=== PATIENT | female | born 1965 | race Caucasian/White ===

== ENCOUNTER 2019-11-14 10:17 | Outpatient (CLI) | payer BC ==
[~2019-11-14] VITALS: Ht 152.4 cm; Wt 99.0 kg
[2019-11-14 10:51] VITALS: BP 153/93
[2019-11-14 11:21] LABS: BASOPHILS % (AUTO) 1 % (0-10); EOSINOPHILS # (AUTO) 0.1 10^3/uL (0.0-0.3); EOSINOPHILS % (AUTO) 1 % (0-10); HEMATOCRIT 47 % (35-52); HEMOGLOBIN 15.7 G/DL (11.5-16.0); LYMPHOCYTES % (AUTO) 37 % (12-44); MEAN CORPUSCULAR HEMOGLOBIN 31 PG (25-34); MEAN CORPUSCULAR HGB CONC 33 G/DL (32-36); MEAN CORPUSCULAR VOLUME 93 FL (80-99); MEAN PLATELET VOLUME 8.8 FL (7.4-10.4); MONOCYTES # (AUTO) 0.5 X 10^3 (0.0-1.0); MONOCYTES % (AUTO) 6 % (0-12); NEUTROPHILS # (AUTO) 4.5 X 10^3 (1.8-7.8); NEUTROPHILS % (AUTO) 56 % (42-75); PLATELET COUNT 307 10^3/uL (130-400); RED CELL DISTRIBUTION WIDTH 13.4 % (10.0-14.5); WHITE BLOOD COUNT 8.2 10^3/uL (4.3-11.0)
[2019-11-14] MEDS ORDERED: ACET-2650 PO (12:00)
[2019-11-14] MEDS ORDERED: LACT1CAP62 PO (12:00)
[2019-11-14] MEDS ORDERED: GLUC1CAP37 PO (12:00)
[2019-11-14] MEDS ORDERED: METF-397 PO (12:00)
== END 2019-11-14 10:50 | disposition home or self-care (01) ==
LOC: PREOP 10:17
PROVIDERS: ATTEND Obstetrics & Gynecology
DX: Z01.818 Encounter for other preprocedural examination (principal); Z01.812 Encounter for preprocedural laboratory examination; D25.9 Leiomyoma of uterus, unspecified; N95.0 Postmenopausal bleeding
CPT/HCPCS: 36415; 85025; 86850; 86900; 86901; 87081

== ENCOUNTER 2019-11-21 06:40 | Day surgery (SDC) | payer BC, OTHER ==
[2019-11-21] VITALS (13 sets, daily range): BP systolic 110–155; BP diastolic 68–101
[~2019-11-21] VITALS: Ht 152.4 cm; Wt 99.0 kg
[~2019-11-21 06:40] MED LIST: ACET-2650 PO; GLUC1CAP37 PO; LACT1CAP62 PO; LACTATED RINGERS 1,000 ML IV ONE; LACTATED RINGERS 1,000 ML IV PRN; METF-397 PO
--- OUTSIDE RECORDS SUMMARY | 2019-11-21 06:44 | XMS REPORT ---
Author Author Angelica Stevens Doctor Organization [facility] Address Unknown Phone Unavailable Care Team Providers Care Wellness Nurse Name Role Phone Migration, Doctor Unavailable Unavailable PROBLEMS Type Condition ICD9-CM Code [id number] Code Onset Dates Condition S tatus SNOMED Code Problem Diverticulitis of colon (without mention of hemorrhage) 56 2.11 Active 148092724 ALLERGIES No Information ENCOUNTERS Encounter Location Date Diagnosis [place] [address] [phone] May, Encounter for immunization Z 23 [place] [address] [phone] 13 Jan, 2016 Examination, physical, emplo shields Z02.89 and Screening for tuberculosis Z11.1 [place] [address] [address] [place] [id number] [place] [phone] May, Encounter for immunization Z 23 [place] [address] [address] Nov, [place] [address] [address] [place] [id number] [place] [phone] Nov, [place] [address] [address] [place] [id number] [place] [phone] Jul, [facility] [address] [place] [id number] [place] [phone] Jul, [place] [address] [address] [place] [id number] [place] [phone] May, [facility] [address] [place] [id number] [place] [phone] May, [facility] [address] [place] [id number] [place] [phone] Mar, [facility] [address] [id number] [address] [place] [phone] Mar, [facility] [address] [id number] [address] [place] [phone] Jul, [facility] [address] [id number] [address] [place] [phone] Jul, [facility] [address] [id number] [address] [place] [phone] Jul, [facility] [address] [id number] [address] [place] [phone] Jul, [facility] [address] [id number] [address] [place] [phone] Jan, [facility] [address] [facility] [id number] [address] [place] [phone] Jul, [facility] [address] [facility] [id number] [address] [place] [phone] May, IMMUNIZATIONS No Known Immunizations SOCIAL HISTORY Never Assessed REASON FOR VISIT [place] [place]AN OF CARE VITAL SIGNS MEDICATIONS Medication Instructions Dosage Frequency Start Date End Date Duration S kya Flagyl 500 mg 1 tablet by Oral route 3 times per day f or 7 days Jan, Active RESULTS No Results PROCEDURES No Known procedures INSTRUCTIONS MEDICATIONS ADMINISTERED No Known Medications MEDICAL (GENERAL) HISTORY Type Description Date Medical History Headache
--- OUTSIDE RECORDS SUMMARY | 2019-11-21 06:44 | XMS REPORT ---
Author Author Angelica THURSTON Organization [employer] Address Unknown Phone Unavailable Care Team Providers Care Specialist Employee Labor Relations Name Role Phone JO-ANN THURSTON CP Unavailable Allergies No Known Allergies Problems Problem Type Condition Code Onset Dates Condition Statu s Assessment Encounter for immunization Z23 A ctive Problem Diverticulitis of colon (without mention of hemorrhage ) 562.11 Active Medications No Known Medications Procedures Procedure Coding System Code Date TDAP (BOOSTRIX) CPT-4 48926 Jun 25, 2015 SINGLE IMMUNIZATION ADMIN CPT-4 62904 May FLUARIX QUAD (3 & UP)-GSK-2014 CPT-[address] 2014 IMMUNIZATION ADMIN, EACH ADD (please include units) CPT-4 16593 Jun 25, 2015 Results No Known Results Immunizations Vaccine Administration Date FLUARIX QUAD (3 & UP)-GSK-2014Jun 25, 2015 TDAP (BOOSTRIX) Jun 25, 2015 Summary Purpose [employer] Submission
--- OUTSIDE RECORDS SUMMARY | 2019-11-21 06:44 | XMS REPORT ---
Author Author Angelica OLSON Organization [facility] Address [address] [place] [address] Care Team Providers Care Machine Crater Name Role Phone LUIS OLSON Unavailable PROBLEMS Type Condition ICD9-CM Code FEC59-WO Code Onset Dates Condition S tatus SNOMED Code Problem Diverticulitis of colon (without mention of hemorrhage) 56 2.11 Active [id number] ALLERGIES No Information ENCOUNTERS Encounter Location Date Diagnosis [facility] [address] [place] [id number] [place] [id number] 13 May, 2016 Encounter for immunization Z 23 [facility] [address] [address] 13 Jan, 2016 Examination, physical, emplo shields Z02.89 and Screening for tuberculosis Z11.1 [facility] [address] [facility] [id number] [address] [place] [phone] May, Encounter for immunization Z 23 [facility] [address] [facility] [id number] [address] [place] [phone] 14 Nov, 2014 [facility] [address] [place] [id number] [place] [phone] Nov, [facility] [address] [facility] [id number] [address] [place] [phone] Jul, [facility] [address] [place] [id number] [place] [phone] Jul, [facility] [address] [place] [id number] [place] [phone] May, [facility] [address] [place] [id number] [place] [phone] May, [place] [address] [id number] [address] [place] [phone] Mar, [facility] [address] [id number] [address] [place] [phone] Mar, [facility] [address] [id number] [address] [place] [phone] Jul, [facility] [address] [id number] [address] [place] [phone] Jul, [facility] [address] [id number] [address] [place] [phone] Jul, [facility] [address] [id number] [address] [place] [phone] Jul, [facility] [address] [facility] [id number] [address] [place] [phone] Jan, [facility] [address] [id number] [address] [place] [phone] Jul, [facility] [address] [id number] [address] [place] [phone] May, IMMUNIZATIONS No Known Immunizations SOCIAL HISTORY Never Assessed REASON FOR VISIT PLAN OF CARE VITAL SIGNS MEDICATIONS Unknown Medications RESULTS No Results PROCEDURES No Known procedures INSTRUCTIONS MEDICATIONS ADMINISTERED No Known Medications MEDICAL (GENERAL) HISTORY Type Description Date Medical History Headache
--- OUTSIDE RECORDS SUMMARY | 2019-11-21 06:44 | XMS REPORT ---
Author Author Angelica CASTANEDA [facility] Address [address] [place] [address] Care Team Providers Care Survey Coordinator Name Role Phone HANH CASTANEDA Unavailable PROBLEMS Type Condition ICD9-CM Code CPB16-CW Code Onset Dates Condition S tatus SNOMED Code Problem Diverticulitis of colon (without mention of hemorrhage) 56 2.11 Active [id number] ALLERGIES No Information ENCOUNTERS Encounter Location Date Diagnosis [facility] [address] [place] [id number] [place] [phone] 13 May, 2016 Encounter for immunization Z 23 [facility] [address] [id number] 13 Jan, 2016 Examination, physical, emplo shields Z02.89 and Screening for tuberculosis Z11.1 [facility] [address] [facility] [id number] [address] [place] [phone] May, Encounter for immunization Z 23 [facility] [address] [place] [id number] [place] [phone] 14 Nov, 2014 [facility] [address] [place] [id number] [place] [phone] Nov, [facility] [address] [facility] [id number] [address] [place] [phone] Jul, [facility] [address] [place] [id number] [place] [phone] Jul, [facility] [address] [place] [id number] [place] [phone] May, [facility] [address] [place] [id number] [place] [phone] May, [place] [address] [id number] [address] [place] [phone] Mar, [facility] [address] [id number] [address] [place] [phone] Mar, [facility] [address] [id number] [address] [place] [phone] Jul, [facility] [address] [id number] [address] [place] [phone] Jul, [facility] [address] [id number] [address] [place] [phone] Jul, [facility] [address] [id number] [address] [place] [phone] Jul, [facility] [address] [id number] [address] [place] [phone] Jan, [facility] [address] [id number] [address] [place] [phone] Jul, [facility] [address] [id number] [address] [place] [phone] May, IMMUNIZATIONS No Known Immunizations SOCIAL HISTORY Never Assessed REASON FOR VISIT PLAN OF CARE VITAL SIGNS MEDICATIONS Unknown Medications RESULTS No Results PROCEDURES Procedure Date Ordered Result Body Site GLUCOSE BLOOD TEST Apr 28, 2014 LIPID PANEL Apr 28, 2014 VENIPUNCT, ROUTINE* Apr 28, 2014 HEMOGLOBIN Apr 28, 2014 INSTRUCTIONS MEDICATIONS ADMINISTERED No Known Medications MEDICAL (GENERAL) HISTORY Type Description Date Medical History Headache
--- OUTSIDE RECORDS SUMMARY | 2019-11-21 06:44 | XMS REPORT ---
Author Author Angelica THURSTON Organization [employer] Address Unknown Phone Unavailable Care Team Providers Care Cushion Spring Assembler Name Role Phone JO-ANN THURSTON CP Unavailable Allergies No Known Allergies Problems Problem Type Condition Code Onset Dates Condition Statu s Assessment Encounter for immunization Z23 A ctive Problem Diverticulitis of colon (without mention of hemorrhage ) 562.11 Active Medications No Known Medications Procedures Procedure Coding System Code Date SINGLE IMMUNIZATION ADMIN CPT-4 06123 May FLUARIX QUAD P-FREE 3 AND UP .50 2015 CPT-4 49770 Jun 12, 2016 Results No Known Results Immunizations Vaccine Administration Date FLUARIX QUAD P-FREE 3 AND UP .50 2015Jun 12, 2016 Summary Purpose [employer] Submission
--- OUTSIDE RECORDS SUMMARY | 2019-11-21 06:44 | XMS REPORT ---
Author Author Angelica Stevens Doctor Organization [facility] Address Unknown Phone Unavailable Care Team Providers Care Baby Formula Worker Name Role Phone Migration, Doctor Unavailable Unavailable PROBLEMS Type Condition ICD9-CM Code HEQ64-QW Code Onset Dates Condition S tatus SNOMED Code Problem Diverticulitis of colon (without mention of hemorrhage) 56 2.11 Active 400354629 ALLERGIES No Information ENCOUNTERS Encounter Location Date Diagnosis [place] [address] [phone] May, Encounter for immunization Z 23 [place] [address] [address] 13 Jan, 2016 Examination, physical, emplo shields Z02.89 and Screening for tuberculosis Z11.1 [place] [address] [place] [id number] [place] [phone] May, Encounter for immunization Z 23 [place] [address] [address] Nov, [place] [address] [place] [id number] [place] [phone] Nov, [place] [address] [place] [id number] [place] [phone] Jul, [facility] [address] [place] [id number] [place] [phone] Jul, [place] [address] [place] [id number] [place] [phone] May, [facility] [address] [place] [id number] [place] [phone] May, [facility] [address] [place] [id number] [place] [phone] Mar, [facility] [address] [place] [id number] [address] [place] [phone] Mar, [facility] [address] [place] [id number] [address] [place] [phone] Jul, [facility] [address] [place] [id number] [address] [place] [phone] Jul, [facility] [address] [place] [id number] [address] [place] [phone] Jul, [facility] [address] [place] [id number] [address] [place] [phone] Jul, [facility] [address] [place] [id number] [address] [place] [phone] Jan, [facility] [address] [place] [id number] [address] [place] [phone] Jul, [facility] [address] [place] [id number] [address] [place] [phone] May, IMMUNIZATIONS No Known Immunizations SOCIAL HISTORY Never Assessed REASON FOR VISIT EMR-[facility] [place] PLAN OF CARE VITAL SIGNS MEDICATIONS Unknown Medications RESULTS No Results PROCEDURES No Known procedures INSTRUCTIONS MEDICATIONS ADMINISTERED No Known Medications MEDICAL (GENERAL) HISTORY Type Description Date Medical History Headache
[2019-11-21] MEDS ORDERED: BUP/EPI 0.5% 1:200,000 (SENSORCAINE) 30 ML VIAL ONE (06:45)
[2019-11-21] MEDS ORDERED: ceFAZolin 2 GM IV Premixed 50 ML IV ONE (06:45)
[2019-11-21] MEDS ORDERED: metroNIDAZOLE 500MG/100ML IVPB 100 ML IV ONE ×2 (06:45)
[2019-11-21] MEDS ORDERED: SEVOFLURANE (ULTANE) 15 ML INHAL SOLN ONE ×5 (06:59→09:07)
[2019-11-21] MEDS ORDERED: proPOfol 200 MG/20 ML (DIPRIVAN) VIAL IV ONE (06:59)
[2019-11-21] MEDS ORDERED: ONDANSETRON 4 MG/2 ML (SDV) Z0FRAN ONE (06:59)
[2019-11-21] MEDS ORDERED: GLYCOPYRROLATE 0.2 MG/ML (ROBINUL) 2 ML VIAL ONE (06:59)
[2019-11-21] MEDS ORDERED: LIDOCAINE PF 2% 5 ML (XYLOCAINE) VIAL ONE (06:59)
[2019-11-21] MEDS ORDERED: NEOSTIGMINE 3 MG/3 ML VIAL ONE (06:59)
[2019-11-21] MEDS ORDERED: ROCURONIUM 10 MG/ML 5 ML SYRINGE IV ONE ×2 (06:59→08:23)
[2019-11-21] MEDS ORDERED: MIDAZOLAM 2 MG/2 ML (VERSED) VIAL ONE (07:00)
[2019-11-21] MEDS ORDERED: fentaNYL INJECTION 100 MCG/2 ML AMP ONE (07:00)
[2019-11-21] MEDS ORDERED: ceFAZolin 2 GM IV Premixed 50 ML ONE (07:06)
[2019-11-21] MEDS ORDERED: metroNIDAZOLE 500MG/100ML IVPB 100 ML ONE (07:06)
--- NOTE | 2019-11-21 07:11 | Progress Note-Pre Operative ---
Pre-Operative Progress Note H&P Reviewed The H&P was reviewed, patient examined and no changes noted. Date Seen by Provider: Nov 21, 2019 Time Seen by Provider: 07:05 Date H&P Reviewed: Nov 21, 2019 Time H&P Reviewed: 07:05 Pre-Operative Diagnosis: Fibroid uterus, PMB, Pelvic pressure/Pain JAXON MARTINEZ DO Nov 21, 2019 07:11
--- NOTE | 2019-11-21 07:13 | Discharge Inst-Women's Service ---
Discharge Inst-Women's Serv Depart Medication/Instructions New, Converted or Re-Newed RX: RX on Chart Problems Reviewed?: Yes Consults/Follow Up Additional Follow Up: Yes Orders/Referrals Dr. Gamboa in 7-10 days and in 8 weeks Activity Activity: Activity as Tolerated Driving Instructions: No Driving for 1 Week NO SMOKING: NO SMOKING Nothing Inside Vagina: No Douching, No Wood-Ridge, No Tampons Diet Discharge Diet: No Restrictions Symptoms to Report to : Bleeding Excessive, Pain Increased, Fever Over 101 Degrees F, Vaginal Bleeding Increase, Questions/Concerns For Any Problems or Questions: Contact Your Physician Skin/Wound Care Infection Signs and Symptoms: Increased Redness, Foul Odor of Wound, Increased Drainage, Skin Itchy or Has a Rash, Increased Swelling, Temperature Above 101 F Operative Area Clean and Dry: Keep Incision Clean/Dry Stitches/Bob/Dermabond: Dermabond, Care of Stitches Bathing Instructions: JAXON Kirkland DO Nov 21, 2019 07:13
[2019-11-21] MEDS ORDERED: SIME80TA16 PO (07:15)
[2019-11-21] MEDS ORDERED: DCS100C PO (07:15)
[2019-11-21] MEDS ORDERED: CHLORASEPTIC LOZENGE MM PRN (07:15)
[2019-11-21] MEDS ORDERED: DOCUSATE SODIUM 100 MG (COLACE) CAP PO PRN (07:15)
[2019-11-21] MEDS ORDERED: ZOLPIDEM 5 MG (AMBIEN) TAB PO PRN (07:15)
[2019-11-21] MEDS ORDERED: ONDANSETRON 4 MG/2 ML (SDV) Z0FRAN IV PRN (07:15)
[2019-11-21] MEDS ORDERED: ANTACID SUSP 30 ML UDC (MYLANTA) PO PRN (07:15)
[2019-11-21] MEDS ORDERED: SIMETHICONE 80 MG (MYLICON) CHEW PO PRN (07:15)
[2019-11-21] MEDS ORDERED: IBUP-844 PO (07:15)
[2019-11-21] MEDS ORDERED: HYDR-34 PO (07:15)
[2019-11-21] MEDS: ceFAZolin 2 GM IV Premixed 50 ML IV ONE (07:35)
[2019-11-21] MEDS ORDERED: VASOPRESSIN INJECTION 20 UNIT/ML VIAL ONE (08:05)
[2019-11-21] MEDS ORDERED: NS (IVPB) 100 ML ONE (08:06)
[2019-11-21] MEDS ORDERED: HYDROmorphone 2 MG/ML VIAL (DILAUDID) ONE (08:57)
[2019-11-21] MEDS ORDERED: INDIGO CARMINE 8 MG/ML 5 ML AMP ONE (09:44)
[2019-11-21] MEDS ORDERED: FUROSEMIDE 40 MG/4 ML INJ (LASIX) ONE (09:44)
[2019-11-21] MEDS: LACTATED RINGERS 1,000 ML IV PRN (10:15)
[2019-11-21] MEDS: LACTATED RINGERS 1,000 ML IV SCH ×3 (11:06→22:29)
[2019-11-21] MEDS ORDERED: morphine INJ 10 MG/ML 1ML (SYR OR VIAL) IVP ONE (11:15)
[2019-11-21] MEDS ORDERED: HYDROmorphone 2 MG/ML VIAL (DILAUDID) IV ONE (11:15)
[2019-11-21] MEDS ORDERED: ONDANSETRON 4 MG/2 ML (SDV) Z0FRAN IVP PRN (11:15)
[2019-11-21] MEDS ORDERED: KETOROLAC 30 MG/ML VIAL ONE (11:39)
[2019-11-21] MEDS: KETOROLAC 30 MG/ML VIAL IV PRN ×2 (11:45→17:56)
--- NOTE | 2019-11-21 11:55 | NUR ---
GABRIELLE SINGH presented to unit via BED from RECOVERY, accompanied by Yojana ZAPATA RN AFTER HAVING SURGERY PER DR. MARTINEZ. VS taken. GABRIELLE SINGH oriented to bed controls, call light, TV, heat, and A/C controls. REPORT RECEIVED.
--- NOTE | 2019-11-21 13:48 | OPERATIVE REPORT ---
DATE OF SERVICE: 11/21/2019 PREOPERATIVE DIAGNOSES: 1. A 54-year-old female with fibroid uterus. 2. Pelvic pressure and discomfort. 3. Postmenopausal bleeding. POSTOPERATIVE DIAGNOSES: 1. A 54-year-old female with fibroid uterus. 2. Pelvic pressure and discomfort. 3. Postmenopausal bleeding. PROCEDURE: Robotic-assisted total laparoscopic hysterectomy with bilateral salpingo-oophorectomy weighing greater than 250 grams. SURGEON: Magan Gamboa DO HR ASSISTANT: Suad Schneider DNP, who was essential and necessary for retraction and manipulation throughout the procedure. ANESTHESIA: General endotracheal. ESTIMATED BLOOD LOSS: Minimal. URINE OUTPUT: 1000 mL of indigo carmine stained at the end of the procedure. FLUIDS: 1800 mL lactated Ringer's solution. FINDINGS: A very narrow vaginal opening introitus consistent with postmenopausal status mucocutaneous atrophy of the vagina otherwise a normal appearing external female genitalia, a bulky and enlarged uterus with multiple myometrial and submucosal and subserosal fibroids, grossly normal appearing bilateral ovaries and fallopian tubes. SPECIMEN SENT: Uterus, bilateral ovaries and fallopian tubes including fibroids. INDICATIONS FOR PROCEDURE: A 54-year-old female is a patient who we have in the past 2 years attempted to conservatively manage her fibroid uterus. She has had multiple episodes of postmenopausal bleeding requiring endometrial biopsy, all of which have been negative. We have been keeping track of her fibroid uterus with ultrasounds and MRIs. The patient more recently had an episode of postmenopausal bleeding. We discussed proceeding with endometrial biopsy. She wished to proceed with more definitive measures at this point. Risk of procedure were discussed with the patient in detail including risk of bleeding, infection, damage to any surrounding structures including, but not limited to bowel, bladder, ureters, kidneys, possible need for reoperation, possible recovery timeframe, risk from anesthesia and even . Everything was discussed with the patient in detail, consent was obtained, the patient was taken to the preoperative area. OPERATIVE REPORT IN DETAIL: Once in the operating room, general anesthesia was found to be adequate, placed in dorsal lithotomy position, prepped and draped in normal sterile fashion. A timeout was performed. A Encinas catheter was placed in sterile technique. A weighted speculum inserted to the patient's vagina. I am able to visualize the cervix to the patient's narrow vaginal introitus. There was also laceration of the posterior fourchette in doing this. I then selected a Graves speculum, which allows me to see the cervix, which I grasped at 12 o'clock position using a single tooth tenaculum. I placed an 0 Vicryl suture through the anterior lip of the cervix and used this as my retraction point. I removed the tenaculum I removed the Graves speculum and I am able to pull the cervix into view using a right-angle retractor in the posterior vaginal wall. I then sound the uterine cavity in depth was found to be 10 cm. I then selected a 10 cm Marti uterine manipulator and a 3.5 cm colpotomy ring, I advanced the manipulator tip up to the uterine endometrium deploying the balloon and I applied the colpotomy ring around the vaginal fornix after which I removed all the instruments from the patient's vagina, performed change of gloves and took my attention to the abdomen where supraumbilically I infiltrated this area using 0.25% Marcaine to make an 8 mm incision, directed Veress needle through the incision, which I am unable to confirm intraperitoneal placement several sticks due to the patient's body habitus. I then gone in the left upper quadrant and mid costal line and introduced the Veress needle through the skin in this position. I then am able to confirm intraperitoneal placement using a saline drop test. I then proceeded with insufflation using CO2 gas and opening pressure of 5 mmHg was noted. I proceeded to maximum pressure of 15 mmHg, at which point I advanced an 8 mm blunt da Diego camera trocar through the supra umbilical incision. I am able to confirm intraperitoneal placement using da Diego laparoscope. A brief scan of the upper abdominal anatomy I am able to visualize the puncture site for the Veress needle. I removed the Veress needle and there was no active bleeding noted from any of my puncture site. I then took my attention to the pelvis where I had the patient placed in steep Trendelenburg and made it visualize all my pelvic anatomy with findings as defined and described above. I then placed two lateral trocars approximately 12 cm lateral to my supraumbilical trocar. These were both 8 mm incisions. The skin was infiltrated using 0.25% Marcaine. An 8 mm incision was made with a knife and the trocars were placed under direct visualization of laparoscope. Once these trocars were in place, I bring in the da Diego laparoscope and docked in appropriate fashion placing the bipolar fenestrated graspers in the left hand and monopolar tyler in the right hand. I began the procedure by performing the following dissection bilaterally. I grasped the infundibulopelvic ligament, bipolar cauterized and transected using the monopolar tyler. I bipolar cauterized and transected the round ligament in a similar fashion. The broad ligament was then identified and taken down the lateral pelvic sidewall and anterior and posterior leaflets, which are distorted due to the patient's large fibroid uterus. I am able to identify the anterior and posterior aspects of the colpotomy ring of the Marti uterine manipulator, which I performed a colpotomy at 12 o'clock and 6 o'clock position using the monopolar tyler. Once this was identified and I have the peritoneum dissected laterally. I am able to clearly dissect out the uterine vessels, which I then bipolar cauterized and transected using the monopolar tyler. With the uterus still attached, I infiltrated the serosa of the uterus around the fibroids that I can identified using vasopressin, a concentration of 20 units in 100 mL of normal saline. Once all these were done, there was blanching noted of the tissue. I either excised or amputate all of the fibroids that I can identify which ends up being 7. They were placed on a pursestring later and removed through the vagina; however, this allows me to visualize in completion of the entire colpotomy ring due to minimalization of the uterine size. I then took the colpotomy circumferentially around the vaginal fornix amputating the cervix away from the vaginal fornix. The entire specimen was then able to be removed through the vagina in two separate portions after bivalving the uterus. I then removed the previously removed fibroids through the vagina as well. There was no active bleeding noted from any of my dissection planes noted at this point. I closed the lateral vaginal apices of the vaginal cuff using 2-0 Vicryl suture in a [id number] fashion colposuspending them to the uterosacral ligaments. I closed the remainder of the vaginal cuff using 2-0 V-Loc in a running fashion, after which there was no active bleeding noted on the peritoneal side of the dissection. I then undocked the da Diego robot and proceeded with remainder of the case laparoscopically. I copiously irrigated the pelvis using normal saline. There was no active bleeding noted from any of my dissection planes. I placed Surgiflo hemostatic agent over all my planes of dissection and excellent hemostasis was noted after doing this. Then the patient was taken out of steep Trendelenburg and removed the lateral trocars under direct visualization of the laparoscope and infraumbilical trocars left in place to release insufflation and to introduce 10 mL of 0.25% Marcaine into the peritoneal cavity for postoperative pain management. I then removed this trocar as well. The skin was reapproximated using 4-0 Monocryl and the subcuticular stitches. Dermabond was applied to incision. Sterile dressings were placed over these as well. I then took my attention back to the vagina where there was bleeding noted from vaginal lacerations. There is a right focal vaginal laceration that repaired using 3-0 Vicryl suture in a running locked fashion. This seemed to control hemostasis. However, there was still some oozing from the vagina. Due to this, I packed the vagina using vaginal packing and leaved the Encinas catheter in place. During the procedure, indigo carmine and 10 mL of Lasix was given and I am able to appreciate indigo carmine in the catheter bag as well as 1000 mL of urine. The patient tolerated the procedure well and was taken to recovery area in stable condition. Lap and sponge counts were correct at the end of the procedure. Instrument counts correct as well. Two grams of Ancef, 500 mg of Flagyl given preoperatively for infection prophylaxis. Job ID: [id number] DocumentID: [id number] Dictated Date: 11/21/2019 11:14:09 Lead Engineer Date: 11/21/2019 13:47:43 Dictated By: DO MILLA PANTOJA
--- NOTE | 2019-11-21 18:43 | NUR ---
DR. MARTINEZ CALLED UNIT, UPDATE PROVIDED. NO NEW ORDERS RECEIVED.
[2019-11-21] MEDS: HYDROcodone/APAP 7.5 MG/325 MG (LORTAB, LORCET PLUS) TABLET PO PRN (20:35)
[2019-11-22] MEDS ORDERED: KETOROLAC 30 MG/ML VIAL ONE (00:20)
[2019-11-22 00:30] VITALS: BP 113/70
[2019-11-22] MEDS: KETOROLAC 30 MG/ML VIAL IV PRN (00:30)
[2019-11-22 03:55] VITALS: BP 101/65
[2019-11-22] MEDS: HYDROcodone/APAP 7.5 MG/325 MG (LORTAB, LORCET PLUS) TABLET PO PRN (04:02)
[2019-11-22] MEDS: IBUPROFEN 600 MG (MOTRIN) TAB PO SCH ×2 (04:45→06:30)
[2019-11-22] MEDS: ceFAZolin 2 GM IV Premixed 50 ML IV ONE (04:48)
--- NOTE | 2019-11-22 08:00 | NUR ---
ABraydenM. ASSESSMENT COMPLETED. PLANNING TO GO HOME TODAY. DR. MARTINEZ HERE TO SEE PT.
[2019-11-22 08:10] VITALS: BP 114/66
--- NOTE | 2019-11-22 08:10 | NUR ---
SPO2 NOTED TO BE 88% ON ROOM AIR. HAD PT DO INCENTIVE SPIROMETRY PRIOR TO TAKING VS. ENCOURAGED TO COUGH AND DEEP BREATHE. ENCOURAGED I.S. Q HOUR. ASSISTED UP TO THE BATHROOM. VOIDED 10 CC PERICARE PERFORMED WITH PAD AND UNDERWEAR APPLIED. AMBULATING WITHOUT PROBLEM.
--- NOTE | 2019-11-22 08:15 | NUR ---
WHILE AMBULATING IN THE MILES, THIS RN CHECK SPO2 ON 3 DIFFERENT MACHINES CONFIRMING LOW SPO2. NO SHORTNESS OF BREATH, NO COMPLAINTS OF PAIN OR DIZZINESS. VAGINAL BLEEDING IS JUST SPOTTING. DENIES ANY PAIN. STATES FEELS LIKE HAS SOME DRAINAGE IN THROAT OFF AND ON.
--- NOTE | 2019-11-22 08:30 | NUR ---
O2 ON AT 1.5 L/M/NC SPO2 TO 93-95% WITH O2. SITTING IN CHAIR. CALL LIGHT PLACED WITHIN REACH. DENIES PAIN.
--- NOTE | 2019-11-22 08:42 | NUR ---
DR. MARTINEZ NOTIFIED OF PT'S SPO2 AND INTERVENTIONS WITH I.S., AMBULATION, AND NOW O2. ORDER RECEIVED FOR RT CONSULT.
--- NOTE | 2019-11-22 08:50 | NUR ---
RT NOTIFIED OF ORDER TO EVALUATE PT R/T SPO2.
--- NOTE | 2019-11-22 08:55 | NUR ---
RT HERE TO SEE PT. SEE THEIR INTERVENTION.
--- NOTE | 2019-11-22 09:43 | Anesthesia-General Post-Op ---
General Patient Condition Mental Status/LOC: Same as Preop Cardiovascular: Satisfactory Nausea/Vomiting: Absent Respiratory: Satisfactory Pain: Controlled Complications: Absent Post Op Complications Complications None Follow Up Care/Instructions Patient Instructions None needed. Anesthesia/Patient Condition Patient Condition Patient is doing well, no complaints, stable vital signs, no apparent adverse anesthesia problems. No complications reported per nursing. MELVIN PAREDES CRNA Nov 22, 2019 09:43
--- NOTE | 2019-11-22 09:56 | NUR ---
RT KHALIF HAD ASSESSED PATIENT AND SPOKE WITH RT STEELE ABOUT THIS PATIENT. HER BS WAS DIMINISHED AND SOUNDED LIKE SHE NEEDED TO COUGH. WHEN REMOVED FROM O2 BY KHALIF PATIENTS O2 SAT DROPPED TO AROUND 85% ON RA; RT KHALIF PLACED PATIENT BACK ON O2 AT 1.5 L. THAT IS WHEN KHALIF SPOKE WITH RT STEELE AND ASKED FOR SUGGESTIONS, RT IVETTE WENT TO THE PATIENTS ROOM AND INSTRUCTED HER ON THE AEROBIKA (FLUTTER DEVICE). PATIENT WAS INSTRUCTED TO DO THE AEROBIKA AND HER I.S. QH WHILE AWAKE X 10 BREATHS ON EACH. RT LET PATIENT KNOW THAT SHE WOULD COME BACK AND CHECK ON HER. RT REMOVED O2 AND PLACED PATIENT ON RA; PATIENTS O2 SAT STARTED TO DROP, RT INSTRUCTED PATIENT TO BREATH IN HER NOSE AND OUT HER MOUTH AND HER O2 SAT CAME UP TO 95% ON RA. RT INFORMED MIRIAN GARSIA OF THIS. WILL COME BACK AND MONITOR PATIENT TO MAKE SURE THAT SHE DOES NOT NEED ANYTHING ELSE RESPIRATORY [place] AT THIS TIME.
--- NOTE | 2019-11-22 10:15 | NUR ---
SPO2 AT 95%. UP TO VOID. VOIDED 100 CC. MOVES WELL.
--- NOTE | 2019-11-22 10:25 | NUR ---
OUT TO AMBULATE IN THE MILES BY HERSELF. NO APPARENT DISTRESS.
--- NOTE | 2019-11-22 11:35 | NUR ---
DISCHARGE INSTRUCTIONS REVIEWED WITH COPY TO PT. RXS GIVEN. STATES UNDERSTANDING OF ALL INSTRUCTIONS AND NEED TO F/U SCHEDULED AND NEEDED.
[2019-11-22 11:40] VITALS: BP 125/82
[2019-11-22 12:00] VITALS: BP 125/82
--- NOTE | 2019-11-22 12:00 | NUR ---
DISMISSED FROM [facility] IN STABLE CONDITION VIA W/C TO FAMILY CAR ACC BY HÉCTOR VELA.
== END 2019-11-22 12:00 | disposition home or self-care (01) ==
LOC: SDC 06:40 → WS 12:25 → SDC 11-22 12:00
PROVIDERS: ATTEND Obstetrics & Gynecology
DX: D25.1 Intramural leiomyoma of uterus (principal); D25.0 Submucous leiomyoma of uterus; D25.2 Subserosal leiomyoma of uterus; N72 Inflammatory disease of cervix uteri; N88.8 Other specified noninflammatory disorders of cervix uteri; N84.0 Polyp of corpus uteri; N80.0 Endometriosis of uterus; N83.8 Other noninflammatory disorders of ovary, fallopian tube and broad ligament; E66.01 Morbid (severe) obesity due to excess calories; E11.9 Type 2 diabetes mellitus without complications; K59.09 Other constipation; Z79.84 Long term (current) use of oral hypoglycemic drugs; Z68.41 Body mass index [BMI] 40.0-44.9, adult
CPT/HCPCS: 82962; 84703; 86850; 86900; 86901; 88307; 94640

== ENCOUNTER → 2020-07-16 | Outpatient (CLI) | payer BC ==
[~2020-07-16] VITALS: Ht 152.4 cm; Wt 100.0 kg
[~2020-07-16] MED LIST changes: +DCS100C PO; +HYDR-34 PO; +IBUP-844 PO; -LACTATED RINGERS 1,000 ML IV ONE; -LACTATED RINGERS 1,000 ML IV PRN; +LIDOCAINE 1% INJ 20 ML 20 ML VIAL INJ ONE; +SIME80TA16 PO
--- NOTE | 2020-07-16 16:18 | Diagnostic Imaging Report ---
INDICATION: Right lobe thyroid nodule. Patient presents for ultrasound-guided fine needle aspiration and biopsy. FINDINGS: The patient was brought to the procedure room and placed on the table in the supine position. Ultrasound imaging of the right neck was performed to evaluate for an appropriate entry site. The right neck was then prepped and draped in the usual sterile fashion. A small amount of 1% lidocaine was utilized for local anesthesia. A total of four passes was made into the solid nodule in the lower pole of the right lobe of the thyroid utilizing 25-gauge needles and fine-needle aspiration technique. A single pass was made with a Rotex needle and a Rotex biopsy was performed. Hemostasis was obtained using manual compression. The patient tolerated the procedure well and left the Department in stable condition. IMPRESSION: Successful ultrasound-guided fine-needle aspiration and Rotex biopsy of the lower pole right lobe thyroid dominant nodule. Pathology results are currently pending. Dictated by: Dictated on workstation # [id number]
== END ==
LOC: RAD 14:30
PROVIDERS: ATTEND Internal Medicine
DX: E04.1 Nontoxic single thyroid nodule (principal)
CPT/HCPCS: 88173

== ENCOUNTER 2022-04-10 15:52 | Outpatient (RCR) | payer BC ==
[~2022-04-10 15:52] MED LIST changes: -DCS100C PO; +DOCU-239 PO; -LIDOCAINE 1% INJ 20 ML 20 ML VIAL INJ ONE
== END 2022-04-22 10:58 | disposition home or self-care (01) ==
PROVIDERS: ATTEND Internal Medicine
DX: M50.123 Cervical disc disorder at C6-C7 level with radiculopathy (principal)